=== PATIENT | male | born 1960 | race Caucasian/White ===

== ENCOUNTER → 2016-05-17 | Outpatient (CLI) | payer OTHER ==
--- NOTE | 2016-05-17 11:41 | DX ---
Left clavicle series 2 views 1022 hours. History: Follow-up fracture. Findings: Comparison to 09/20/2015 and 09/06/2015. There does appear to be slight difference in orientation of the fracture midshaft left clavicle cindy red to the prior studies, however, there is still good alignment. There does appear to be some remode ling at the fracture site. The AC joint and glenohumeral joint are normal in appearance. No additiona l fractures are appreciated. Impression: 1. Healing fracture midshaft left clavicle when compared to the prior studies although the orientatio n appears to be slightly different.
== END ==
LOC: BMCIMAGING 10:22
PROVIDERS: ATTEND Orthopaedic Surgery
DX: S42.025D Nondisplaced fracture of shaft of left clavicle, subsequent encounter for fracture with routine healing (principal)

== ENCOUNTER → 2018-07-22 | Outpatient (CLI) | payer OTHER | LOC: BMCIMAGING 08:04 | PROVIDERS: ATTEND Physician Assistant | DX: M25.561 Pain in right knee (principal) ==